=== PATIENT | male | born 1940 | race African-American/Black ===

== ENCOUNTER 2017-03-01 21:34 | Emergency (ER) | payer OTHER ==
[2017-03-01 22:12] VITALS: BMI 23.8
--- NOTE | 2017-03-01 22:13 | PDOC ---
History of Present Illness - General Chief Complaint: Weakness Stated Complaint: WEAKNESS Time Seen by Provider: 03/01/17 21:43 Past History - Past Medical History Allergies/Adverse Reactions: Allergies Allergy/AdvReac Type Severity Reaction Status Date / Time No Known Allergies Allergy Verified 03/01/17 22:09 Home Medications: Ambulatory Orders Lisinopril [Prinivil] 20 mg PO BID 01/15/14 Sitagliptin Phosphate [Januvia] 50 mg PO DAILY 01/15/14 Tamsulosin HCl [Flomax -] 0.4 mg PO DAILY 01/15/14 Insulin (Levemir) [Levemir Flexpen -] 10 units SQ HS #1 pen 01/17/14 Levetiracetam [Keppra -] 500 mg PO BID #60 tablet 01/17/14 Multivitamin [Animal Chews] 1 each PO DAILY #30 tab.chew 01/17/14 CVA: Yes Diabetes: Yes HTN: Yes Liver Disease: Yes (hepatitis) - Psycho/Social/Smoking Cessation Hx Anxiety: Yes Suicidal Ideation: No Smoking History: Never smoked Have you smoked in the past 12 months: No Information on smoking cessation initiated: No Hx Alcohol Use: No Drug/Substance Use Hx: Yes (heroin) Substance Use Type: Heroin Hx Substance Use Treatment: No *Physical Exam - Vital Signs Last Vital Signs Temp Pulse Resp BP Pulse Ox 97.9 F 78 18 155/102 97 03/01/17 22:09 03/01/17 22:09 03/01/17 22:09 03/01/17 22:09 03/01/17 22:09
[2017-03-01 22:15] VITALS: BP 150/94; PULSE 70; TEMP 98.1
[2017-03-01 22:35] LABS: BASOPHIL 0.2 % (0-2.0); MCH 30.7 pg (25.7-33.7); MCHC 33.9 g/dl (32.0-35.9); MEAN CELL VOLUME 90.8 fl (80-96); MEAN PLT VOLUME 9.4 fl (7.5-11.1); NEUTROPHILS 84.7 % (42.8-82.8); PLATELET COUNT 175 K/MM3 (134-434); RDW 13.2 % (11.9-15.9); WHITE BLOOD COUNT 11.2 K/mm3 (4.0-10.0)
[2017-03-01 22:46] LABS: INR 1.09 (0.82-1.09)
--- NOTE | 2017-03-01 23:00 | PDOC ---
History of Present Illness - General History Source: Patient Exam Limitations: No Limitations - History of Present Illness Initial Comments: 03/01/17 23:01 The patient is a 77 year old male with significant past medical history of heroin abuse, intracranial bleed, diabetes, hepatitis C, hypertension, and CVA who presents to the ED with 3 days of generalized weakness and lack of appetite. Patient admits to being a chronic daily heroin user for the past 20 years. His last use was 2 days ago. Admits to taking a half of copaxone earlier this morning. Denies diaporesis, joint pain, feeling tremulous, or piloerection. The patient denies fever, chills, cough, SOB, chest pain, and palpitations. The patient denies abdominal pain, nausea, vomiting, and diarrhea. 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 No alcohol or tobacco use reported. Past Surgical History: Cholecystectomy PCP: Dr. Dora Cash <Maria A Diaz - Last Filed: 03/01/17 23:01> - General History Source: Patient <Shiva Martinez - Last Filed: 03/02/17 06:23> - General Chief Complaint: Weakness Stated Complaint: WEAKNESS Time Seen by Provider: 03/01/17 21:43 Past History <Maria A Diaz - Last Filed: 03/01/17 23:01> - Past Medical History CVA: Yes Diabetes: Yes HTN: Yes Liver Disease: Yes (hepatitis) - Psycho/Social/Smoking Cessation Hx Anxiety: Yes Suicidal Ideation: No Smoking History: Never smoked Have you smoked in the past 12 months: No Information on smoking cessation initiated: No Hx Alcohol Use: No Drug/Substance Use Hx: Yes (heroin) Substance Use Type: Heroin Hx Substance Use Treatment: No <Shiva Martinez - Last Filed: 03/02/17 06:23> - Past Medical History Allergies/Adverse Reactions: Allergies Allergy/AdvReac Type Severity Reaction Status Date / Time No Known Allergies Allergy Verified 03/01/17 22:09 Home Medications: Ambulatory Orders Lisinopril [Prinivil] 40 mg PO BID 01/15/14 Sitagliptin Phosphate [Januvia] 100 mg PO DAILY 01/15/14 Tamsulosin HCl [Flomax -] 0.4 mg PO DAILY 01/15/14 Levetiracetam [Keppra -] 500 mg PO BID #60 tablet 01/17/14 Multivitamin [Animal Chews] 1 each PO DAILY #30 tab.chew 01/17/14 Amlodipine Besylate [Norvasc -] 2.5 mg PO DAILY 03/01/17 Finasteride 5 mg PO DAILY 03/01/17 Multivitamin [Poly-Vitamin] 1 each PO DAILY #60 tab.chew 03/02/17 Ondansetron [Zofran *Odt*] 4 mg SL TID #30 od.tablet 03/02/17 Review of Systems - Review of Systems Able to Perform ROS?: Yes Comments:: 03/01/17 23:02 CONSTITUTIONAL: +generalized weakness, lack of appetite Absent: fever, no chills, no fatigue EYES: Absent: visual changes ENT: Absent: ear pain, no sore throat CARDIOVASCULAR: Absent: chest pain, no palpitations RESPIRATORY: Absent: cough, no SOB GI: Absent: abdominal pain, no nausea, no vomiting, no constipation, no diarrhea GENITOURINARY: Absent: dysuria, no frequency, no hematuria MUSCULOSKELETAL: Absent: back pain, no arthralgia, no myalgia SKIN: Absent: rash NEURO: Absent: headache <Maria A Diaz - Last Filed: 03/01/17 23:01> *Physical Exam - Vital Signs Last Vital Signs Temp Pulse Resp BP Pulse Ox 98.1 F 70 17 150/94 97 03/01/17 22:13 03/01/17 22:13 03/01/17 22:13 03/01/17 22:13 03/01/17 22:13 - Physical Exam Comments: 03/01/17 23:02 GENERAL: Well-appearing, well-nourished. No apparent distress. HEENT: Normocephalic, atraumatic. PERRL, EOM intact. Dry mucous membranes. CARDIOVASCULAR: Normal S1, S2. Regular rate and rhythm. PULMONARY: Clear to auscultation bilaterally. ABDOMEN: Soft, non-distended, non-tender. EXTREMITIES: Normal ROM in all four extremities. No gross deformities. SKIN: Warm, dry. No rash NEUROLOGICAL: No focal neurological deficits. <Maria A Diaz - Last Filed: 03/01/17 23:01> - Vital Signs Last Vital Signs Temp Pulse Resp BP Pulse Ox 98.1 F 70 17 150/94 97 03/01/17 22:13 03/01/17 22:13 03/01/17 22:13 03/01/17 22:13 03/01/17 22:13 <Shiva Martinez - Last Filed: 03/02/17 06:23> ED Treatment Course - LABORATORY CBC & Chemistry Diagram: 03/01/17 22:15 03/01/17 22:15 - ADDITIONAL ORDERS Additional order review: Laboratory Results 03/01/17 22:15 INR 1.09 03/01/17 22:15 RBC 4.77 MCV 90.8 MCHC 33.9 RDW 13.2 MPV 9.4 Neutrophils % 84.7 H D Lymphocytes % 10.7 D Monocytes % 4.4 Eosinophils % 0.0 D Basophils % 0.2 <Maria A Diaz - Last Filed: 03/01/17 23:01> - LABORATORY CBC & Chemistry Diagram: 03/01/17 22:15 03/01/17 22:15 - ADDITIONAL ORDERS Additional order review: Laboratory Results 03/01/17 22:15 INR 1.09 03/01/17 22:15 RBC 4.77 MCV 90.8 MCHC 33.9 RDW 13.2 MPV 9.4 Neutrophils % 84.7 H D Lymphocytes % 10.7 D Monocytes % 4.4 Eosinophils % 0.0 D Basophils % 0.2 <Shiva Martinez - Last Filed: 03/02/17 06:23> Medical Decision Making - Medical Decision Making 03/02/17 06:23 Dr. Martinez: The scribe's documentation has been prepared under my direction and personally reviewed by me in its entirery. I confirm that the note above accurately reflects all work, treatment, procedures, and medical decision making performed by me. <Shiva Martinez - Last Filed: 03/02/17 06:23> *DC/Admit/Observation/Transfer - Attestations Scribe Attestion: 03/01/17 23:02 Documentation prepared by Maria A Diaz, acting as emergency medical technician/driver for Shiva Martinez MD <Maria A Diaz - Last Filed: 03/01/17 23:01> - Discharge Dispostion Admit: No <Shiva Martinez - Last Filed: 03/02/17 06:23> Diagnosis at time of Disposition: Malaise and fatigue - Prescriptions Prescriptions: Multivitamin [Poly-Vitamin] 1 each PO DAILY #60 tab.chew Ondansetron [Zofran *Odt*] 4 mg SL TID #30 od.tablet - Referrals Referrals: Dora Cash MD [Primary Care Provider] - - Patient Instructions Printed Discharge Instructions: DI for Fatigue Additional Instructions: Please follow up with your primary care doctor as soon as possible. TAke Mutlivitamin daily. Rest and eat well daily.
[2017-03-01 23:25] LABS: ALBUMIN 3.3 g/dl (3.4-5.0); BILIRUBIN,TOTAL 0.9 mg/dL (0.2-1.0); CALCIUM 8.8 mg/dL (8.5-10.1); COCKROFT - GAULT 39.56; CREATININE 1.6 mg/dL (0.7-1.3); MAGNESIUM 2.2 mg/dL (1.8-2.4); TOT PROT 7.5 g/dl (6.4-8.2)
[2017-03-01 23:27] LABS: TROPONIN I 0.02 ng/ml (0.00-0.05)
[2017-03-02] MEDS ORDERED: METHADONE HCL 10 MG TABLET ONE (01:42)
[2017-03-02] MEDS: METHADONE HCL 10 MG TABLET PO ONE (01:44)
[2017-03-02 02:53] LABS: URINE APPEARANCE CLEAR; URINE BILIRUBIN NEGATIVE (NEGATIVE); URINE COLOR LTYELLOW; URINE GLUCOSE (UA) 2+ (NEGATIVE); URINE KETONE NEGATIVE (NEGATIVE); URINE LEUK ESTERASE NEGATIVE (NEGATIVE); URINE NITRITE NEGATIVE (NEGATIVE); URINE UROBILINOGEN NEGATIVE E.U./dl (0.2-1.0)
[2017-03-02 03:02] LABS: URINE BLOOD 1+ (NEGATIVE); URINE PROTEIN 2+ (NEGATIVE)
[2017-03-02 03:03] LABS: URINE BACTERIA RARE /hpf (NONE SEEN); URINE MUCUS RARE; URINE RBC <1 /hpf (0-3); URINE WBC 3 /hpf (3-5)
== END 2017-03-02 04:16 | disposition home or self-care (01) ==
LOC: JER 21:34
DX: R53.83 Other fatigue (principal); F11.10 Opioid abuse, uncomplicated; I10 Essential (primary) hypertension; E11.9 Type 2 diabetes mellitus without complications; Z79.84 Long term (current) use of oral hypoglycemic drugs; B18.2 Chronic viral hepatitis C; Z86.73 Personal history of transient ischemic attack (TIA), and cerebral infarction without residual deficits
CPT/HCPCS: 36415; 80053; 81003; 81015; 82550; 82553; 83735; 84484; 85025; 85610; 99285-25

== ENCOUNTER 2018-12-17 08:57 | Emergency (ER) | payer OTHER ==
[2018-12-17 09:04] VITALS: TEMP 98.5; BMI 24.5
--- NOTE | 2018-12-17 10:20 | PDOC ---
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 Per the patient, he had a URI 3 months ago and was subsequently treated throughout the 3 months with 2 rounds of antibiotics with he most recent levaquin for 7 days that was finished within the last 2 weeks. Denies the following: fevers, chills, nausea, vomiting, chest pain, SOB, abdominal pain, dysuria, hematuria, hematochezia, diarrhea, and leg pain/swelling. Past History - Past Medical History Allergies/Adverse Reactions: Allergies Allergy/AdvReac Type Severity Reaction Status Date / Time No Known Allergies Allergy Verified 12/17/18 09:00 Home Medications: Ambulatory Orders Lisinopril [Prinivil] 40 mg PO BID 01/15/14 Sitagliptin Phosphate [Januvia] 100 mg PO DAILY 01/15/14 Multivitamin [Animal Chews] 1 each PO DAILY #30 tab.chew 01/17/14 levETIRAcetam [Keppra -] 500 mg PO BID #60 tablet 01/17/14 Amlodipine Besylate [Norvasc -] 2.5 mg PO DAILY 03/01/17 Finasteride 5 mg PO DAILY 03/01/17 Multivitamin [Poly-Vitamin] 1 each PO DAILY #60 tab.chew 03/02/17 Mometasone Furoate 17 gm NS PRN 12/17/18 CVA: Yes COPD: No Diabetes: Yes (IDDM) HTN: Yes Liver Disease: Yes (hepatitis) - Immunization History Immunization Up to Date: Yes - Suicide/Smoking/Psychosocial Hx Smoking History: Never smoked Have you smoked in the past 12 months: No Information on smoking cessation initiated: No Hx Alcohol Use: No Drug/Substance Use Hx: No Substance Use Type: Heroin Hx Substance Use Treatment: No Review of Systems - Review of Systems Able to Perform ROS?: Yes Is the patient limited Estonian proficient: No Constitutional: No: Chills, Diaphoresis, Fever HEENTM: Yes: Nose Congestion. No: Eye Pain, Recent change in vision, Ear Pain, Nose Pain, Throat Pain, Mouth Pain Respiratory: No: Cough, Shortness of Breath, Hemoptysis Cardiac (ROS): No: Chest Pain, Lightheadedness, Palpitations, Syncope, Chest Tightness ABD/GI: No: Constipated, Diarrhea, Nausea, Rectal Bleeding, Vomiting, Tarry Stools : No: Burning, Dysuria, Hematuria, Urgency Musculoskeletal: No: Back Pain, Joint Pain, Neck Pain Integumentary: No: Bruising, Erythema, Pruritus, Rash Neurological: No: Headache, Numbness, Tingling, Tremors, Ataxia, Dizziness Psychiatric: No: Change in Appetite Endocrine: No: Unexplained Weight Gain Hematologic/Lymphatic: No: Anemia *Physical Exam - Vital Signs Last Vital Signs Temp Pulse Resp BP Pulse Ox 98.5 F 76 17 160/97 100 12/17/18 09:00 12/17/18 09:00 12/17/18 09:00 12/17/18 09:00 12/17/18 09:53 - Physical Exam General Appearance: Yes: Nourished, Appropriately Dressed. No: Apparent Distress, Intoxicated HEENT: positive: EOMI, FLAKITA, Normal Voice, Symmetrical, TMs Normal, Pharynx Normal, Nasal Congestion (nasal erythema), Hearing Grossly Normal. negative: Pale Conjunctivae, Scleral Icterus (R), Scleral Icterus (L), Muffled/Hoarse voice, Pharyngeal Erythema, Tonsillar Exudate, Tonsillar Erythema, Rhinorrhea, Sinus Tenderness, Excessive drooling Neck: positive: Trachea midline, Supple. negative: Tender, Lymphadenopathy (R) , Lymphadenopathy (L), Rigidity, Tender lateral, Tender midline Respiratory/Chest: positive: Lungs Clear, Normal Breath Sounds. negative: Chest Tender, Respiratory Distress, Accessory Muscle Use, Crackles, Rales, Rhonchi, Stridor Cardiovascular: positive: Regular Rhythm, Regular Rate, S1, S2. negative: Systolic Murmur Gastrointestinal/Abdominal: positive: Normal Bowel Sounds, Flat, Soft. negative : Tender, Rebound, Tenderness, Hernia Moderate Sedation - Procedure Monitoring Vital Signs: Procedure Monitoring Vital Signs Temperature 98.5 F 12/17/18 09:00 Pulse Rate 76 12/17/18 09:00 Respiratory Rate 17 12/17/18 09:00 Blood Pressure 160/97 12/17/18 09:00 O2 Sat by Pulse Oximetry (%) 100 12/17/18 09:53 *DC/Admit/Observation/Transfer Diagnosis at time of Disposition: Post-nasal drip - Discharge Dispostion Disposition: HOME Condition at time of disposition: Stable Decision to Admit order: No - Referrals Referrals: Dora Cash MD [Primary Care Provider] - - Patient Instructions Printed Discharge Instructions: How to Avoid a Cold or Flu Additional Instructions: you have been seen in the emergency department for the evaluation of your coughing of mucus at night. your xray was negative for infections. please use flonase which can be bought over the counter. place 1-2 sprays in each nare of the nose each day. in addition, please take loratadine (claritin) 10 mg once per day that can also be bought over the counter. please see your primary medical doctor in 1 week after discharge for follow up care and management. please keep an air humidifier within the home. please return to the emergency department if you have new or worsening symptoms. thank you. - Post Discharge Activity
[2018-12-17 11:13] VITALS: BP 147/97; PULSE 56
--- NOTE | 2018-12-17 11:26 | PDOC ---
Attending Attestation - Resident Resident Name: EshaAnuj - ED Attending Attestation I have performed the following: I have examined & evaluated the patient, The case was reviewed & discussed with the resident, I agree w/resident's findings & plan - HPI HPI: 12/17/18 11:26 77 year old male with significant past medical history of heroin abuse, intracranial bleed, diabetes, hepatitis C, hypertension, and CVA presenting with 3 months of post nasal drip, congestion and nighttime cough. Has been on course of nasal mometasone and levaquin, without effect. No f/c, no cp. No castellanos/ dizziness, leg pain or swelling. No AP, n/v. no other sick contacts. PMD: Dr Gray - Physicial Exam PE: 12/17/18 11:26 NAD, well appearing, PERRL, EOMI, MMM, nl conjunctiva, anicteric; neck supple. lungs clear, RRR, abdomen soft nontender. COURTNEY x4, no focal neuro deficits. No peripheral edema. normal color for ethnicity, WWP. - Medical Decision Making 12/17/18 11:26 hpi as documented VS wnl, no respiratory distress. CXR clear, no mass or effusion/pneumonia well appearing oropharynx normal likely post viral cough vs syndrome vs bronchitis vs Post nasal drip supportive care, maintain clear and clean environment, flonase sprays prn and zyrtec for allergy sx. no abx needed. doubt any acute pathology or respiratory derangements. PCP followup. dc in stable condition. return precautions.
== END 2018-12-17 11:13 | disposition home or self-care (01) ==
LOC: JER 08:57
DX: R09.82 Postnasal drip (principal); I10 Essential (primary) hypertension; E11.9 Type 2 diabetes mellitus without complications; Z79.4 Long term (current) use of insulin; Z79.84 Long term (current) use of oral hypoglycemic drugs; K75.9 Inflammatory liver disease, unspecified; Z86.73 Personal history of transient ischemic attack (TIA), and cerebral infarction without residual deficits
CPT/HCPCS: 71046-TC-FY; 99281-25